=== PATIENT | male | born 1940 | race Caucasian/White ===

== ENCOUNTER → 2016-10-13 | Outpatient (CLI) | payer MEDICARE, OTHER ==
[2016-10-13] VITALS (7 sets, daily range): BP systolic 123–176; BP diastolic 81–106
[~2016-10-13] VITALS: Ht 170.2 cm; Wt 78.0 kg
[~2016-10-13] MED LIST: ACET325T9 PO; BETA15CR5 TP; BRIM5DRO3 EACHEYE; CALC625T7 PO; CHOL400C2 PO; CILO100T PO; CITA20SO PO; DORZ10DR7 EACHEYE; FENTANYL PF 250 MCG/5 ML VIAL. IV ONE; FENTANYL PF 250 MCG/5 ML VIAL. ONE; GUAI600T38 PO; LIDOCAINE 1% / SOD BICARB 8.4% 20 ML VIAL. IJ ONE; LORA10TA3 PO; MIDAZOLAM HCL/PF 5 MG/5 ML VIAL IV ONE; MIDAZOLAM HCL/PF 5 MG/5 ML VIAL ONE; OLAN5TAB3 PO; OMEP20TA PO; POLY500P10 MC; SENN8.6T3 PO; SIMV10TA3 PO; TRAV5DRO OP; WARF1TAB7 PO; WARF4TAB7 PO
[2016-10-13 07:21] LABS: BASO # 0.1 x10^3/uL (0.0-0.2); BASO % 1 % (0-3); EOS % 3 % (0-3); HEMATOCRIT 41.1 % (39.0-53.0); HEMOGLOBIN 13.7 g/dL (13.0-17.5); LYMPH # 1.9 x10^3/uL (1.0-4.8); LYMPH % 27 % (24-48); MEAN CORPUSCULAR HEMOGLOBIN 31 pg (25-35); MEAN CORPUSCULAR HGB CONC 33 g/dL (31-37); MEAN CORPUSCULAR VOLUME 92 fL (79-100); MONO % 13 % (0-9); NEUT % 57 % (31-73); PLATELET COUNT 134 x10^3/uL (140-400); RED BLOOD COUNT 4.45 x10^6/uL (4.30-5.70); RED CELL DISTRIBUTION WIDTH 14.6 % (11.5-14.5); WHITE BLOOD COUNT 7.2 x10^3/uL (4.0-11.0)
[2016-10-13 07:37] LABS: INR 1.1 (0.8-1.1); PROTHROMBIN TIME PATIENT 13.8 SEC (11.7-14.0)
--- NOTE | 2016-10-13 08:54 | PDOC ---
MODERATE SEDATION ASSESSMENT RISKS/ALTERNATIVES Risks/Alternatives Risks and alternatives of this type of sedation and procedure discussed with: RISK/ALTERNATIVES: Patient H & P ON CHART H & P H & P on chart and reviewed for co-morbid conditions and appropriate labs. H&P ON CHART: Yes STATUS PREG STATUS ASSESSED: Yes MEDS/ALLERGIES REVIEWED Meds/Allergies Reviewed Medications and Allergies including time and route of recently administered narcotics and sedatives. MEDS/ALLERGIES REVIEWED: Yes ASA RATING ASA RATING: II AIRWAY ASSESSMENT Airway Assessment Airway patency, oral function limitations, presence of caps, crowns, dentures, partials, and ability to extend neck assessed. AIRWAY ASSESSMENT: Yes MALLAMPATI SCORE MALLAMPATI SCORE: II PRE-SEDATION ASSESSMENT PRE-SEDATION ASSESSMENT: Yes JERAMY CABRERA MD Oct 13, 2016 08:54
--- NOTE | 2016-10-13 08:55 | PDOC ---
BRIEF OPERATIVE NOTE Pre-Op Diagnosis Thrombocytopenia Post-Op Diagnosis same Procedure Performed CT Bone Marrow Biopsy Surgeon Kristina Anesthesia Type: Conscious Sedation Specimens Obtained 2 x 2cc aspirates and 1 x 10g core Complications No immediate JERAMY CABRERA MD Oct 13, 2016 08:55
[2016-10-13 09:12] LABS: % BASOS 1 % (0-3); PLT ESTIMATE ADEQUATE (ADEQUATE)
--- NOTE | 2016-10-13 14:44 | RAD ---
Procedure: CT-guided bone marrow aspiration and biopsy Clinical Indication: 76-year-old male with thrombocytopenia Sedation: Conscious sedation was administered for 8 minutes. The patient was monitored by a qualified independent observer throughout the time of sedation. Please refer to the medical record for exact doses of medications utilized to achieve moderate sedation. Antibiotics: None Fluoro Time: Not applicable Contrast: None Sterility: The procedure was performed in its entirety using appropriate elements of sterile technique. Consent: The procedure was explained in its entirety to the patient or the patients designated apparel trimmings sales representative by a member of the treatment team, including a discussion of the risks, benefits and commonly accepted alternatives to the procedure, as well as the expected consequences of no therapy whatsoever. Discussion of the risks included, but was not limited to, those that are most frequent and those that are rare but possibly severe or life-threatening, as well as the possibility of unforeseen complications. Technique and Findings: Following informed consent, the patient was prepped and draped in usual sterile fashion. Preliminary CT scan of the area of interest was performed. 1% Lidocaine was used to achieve local anesthesia. Under periodic CT surveillance, an 11-gauge needle was advanced through the cortex of the posterior superior iliac spine and 2 separate 2 mL marrow aspirates were obtained and preserved on site by the assistant guest services manager. A single 11-gauge core biopsy specimen was then obtained and preserved in formalin. The needle was then removed and hemostasis was achieved with manual compression. Complications: No immediate Impression: 1. CT-guided bone marrow aspiration and biopsy as described PQRS Compliance Statement: One or more of the following individualized dose reduction techniques were utilized for this examination: 1. Automated exposure control 2. Adjustment of the mA and/or kV according to patient size 3. Use of iterative reconstruction technique
--- NOTE | 2016-10-15 16:22 | PATHOLOGY ---
PATHOLOGY REPORT * * * * * * * * FINAL DIAGNOSIS: Bone marrow aspirate, biopsy, cell clot and peripheral blood: - Peripheral blood with mild thrombocytopenia, mild mature monocytosis and mildly left shifted granulocytes. - Hypercellular bone marrow with trilineage hematopoiesis, mild dyspoiesis, and no evidence of lymphoma or acute leukemia. (see comment) COMMENT: Overall, the bone marrow is hypercellular for the patient's age with trilineage hematopoiesis, mild dyspoiesis, and no evidence of lymphoma or acute leukemia. The dyspoiesis is mild and white it could possibly represent a low-grade myelodysplastic syndrome or mixed myelodysplastic syndrome / myeloproliferative neoplasm, it does not meet the morphologic criteria for myelodysplasia. Correlation with clinical history, additional laboratory data and cytogenetics is recommended. (CLW:; d/t: 10/15/16) REPORT ELECTRONICALLY SIGNED BY: Alla Shen M.D. DATE/TIME: 10/15/2016 16:21 * * * * * * * * MICROSCOPIC DESCRIPTION: CBC Data (10/13/16): WBC 7,200 /uL, RBC 4.45, hemoglobin 13.7 g/dL, hematocrit 41.1%, MCV 92 fL, MCH 31 pg, MCHC 33 g/dL, RDW 14.6%, and platelet count 134,000 /uL. Manual white blood cell differential: 46% segs, 1% bands, 31% lymphs, 16% monos, 1% basos, 2% myelos, and 3% atypical lymphs. Peripheral Blood Smear: Cytomorphological examination of the Ovalles's stained peripheral blood smear confirms the provided data. Red blood cells are normocytic and are without significant anisopoikilocytosis. White blood cells are predominantly segmented neutrophils and are without significant dyspoiesis. There is a mild left shift with a rare metamyelocyte noted on scanning. No blasts or Antony rods are seen. Lymphocytes are predominantly small, round, and mature appearing with condensed chromatin and scant cytoplasm with admixed large granular lymphocytes and reactive appearing lymphocytes. On scanning, no markedly atypical lymphoid cells are seen. There is a mild mature monocytosis. Platelets are adequate (mildly decreased) in number and mainly normal in morphology with rare larger platelets noted. Aspirate Smears: Cytomorphological examination of the Ovalles's stained aspirate smear shows spicules present. The overall cellularity is approximately 60-70%. The myeloid to erythroid ratio is 1.5:1. Full myeloid maturation is identified and is without significant dyspoiesis. Erythroid maturation is mildly dyserythropoietic with occasional irregular nuclear contours, binucleate forms, and mitotic figures. In a 500 cell differential, there are 1% blasts (no Antony rods are seen), 54% more differentiated myeloids, 31% erythroid precursors, 11% lymphocytes, and 3% plasma cells. Megakaryocytes are proportional in number and both normal and abnormal in morphology with variable sizes and nuclear abnormalities including small and/or hypolobated forms present. No lymphoid aggregates or markedly atypical lymphoid cells are seen. Plasma cells are without atypia. Iron stain of the aspirate smear shows 1/4+ iron positivity with spicules present. No ringed sideroblast are identified. Core Biopsy and Cell Clot: The decalcified bone marrow core biopsy is adequate but suboptimal. It is small in size with a significant portion of periosteum. The overall cellularity is approximately 60-70% (hypercellular). The myeloid to erythroid ratio is 1-2:1. Myeloid maturation is without significant dyspoiesis. Erythroid maturation is mildly dyserythropoietic. Megakaryocytes are normal in number and both normal and abnormal in morphology. No lymphoid aggregates or markedly atypical lymphoid cells are seen. Bony trabeculae and blood vessels are unremarkable. The cell clot has spicules present that are similar in cellularity and differential morphology as previously described. Iron stain of the cell clot (block A1) shows 1/4+ iron positivity with spicules present. Flow Cytometry: Flow cytometric immunophenotypic analysis was performed at [facility]. The diagnosis is "no diagnostic immunophenotypic abnormalities detected." There are 12.4% lymphocytes. Of the lymphocytes, there are 68% T cells with a CD4/CD8 ratio of 1.2 and no aberrant T cell antigen expression and 5% polyclonal B cells. There are 1.0% CD34 positive cells (blasts) and 0.4% precursor B cells. No immunophenotypic evidence of a lymphoproliferative disorder, acute leukemia, increase in blasts or plasma cell neoplasm is identified. Please see separate flow cytometry report from [facility] ([id number]). Cytogenetics: Cytogenetic chromosomal analysis is pending at [facility] ([id number]). GROSS PATHOLOGY: A. Received in formalin labeled "Vincent Mejía" and additionally labeled "BM bx clot" on the requisition is blood coagulum, measuring 2.4 x 2.1 x 0.2 cm in aggregate dimensions. The specimen is submitted entirely in cassette A1. B. Received in formalin labeled "Vincent Mejía and bone marrow biopsy," is a single needle core of possible frias bone, measuring 0.3 cm in length and 0.2 cm in diameter. The specimen is submitted entirely in cassette B1, following decalcification. (TTL; 10/13/2016) INITIAL CPT CODE(S): A; 59860, 41056 B; 79524, 58706 C; 79606, 47647 D; 78357 Professional services performed by [facility] at [place] [address], [place] [address] Technical services performed by [facility] at [address] [place] [address], [facility] [address] [place] [address]. SPECIMEN(S) RECEIVED: A.Bone marrow, clot B.Bone marrow, biopsy C.Bone marrow, aspirate smears D.Peripheral smear CLINICAL HISTORY: MDS 76 year-old man with thrombocytopenia. PATIENT: VINCENT MEJÍA /AGE: 8 1940 (Age: 76) PATIENT #: [id number] ALT CASE #: SPECIMEN COLLECTION DATE: 10/13/2016 SPECIMEN RECEIVED DATE: 10/13/2016 [facility] - [id number] [place] [address] - PHONE: [phone] * * * END OF REPORT * * *
== END | disposition home or self-care (01) ==
LOC: INTRAD 06:45
PROVIDERS: ATTEND Internal Medicine Hematology & Oncology
DX: D69.6 Thrombocytopenia, unspecified (principal); G20 Parkinson's disease; E78.00 Pure hypercholesterolemia, unspecified; K21.9 Gastro-esophageal reflux disease without esophagitis; F32.9 Major depressive disorder, single episode, unspecified
CPT/HCPCS: 36415; 38221; 77012; 85007; 85027; 85610; 88184; 88185; 88237; G0364; J2250; J3010

== ENCOUNTER 2017-08-19 17:16 | Emergency (ER) | payer MEDICARE, OTHER ==
[~2017-08-19 17:16] MED LIST changes: -FENTANYL PF 250 MCG/5 ML VIAL. IV ONE; -FENTANYL PF 250 MCG/5 ML VIAL. ONE; -GUAI600T38 PO; +GUAI600T47 PO; -LIDOCAINE 1% / SOD BICARB 8.4% 20 ML VIAL. IJ ONE; -MIDAZOLAM HCL/PF 5 MG/5 ML VIAL IV ONE; -MIDAZOLAM HCL/PF 5 MG/5 ML VIAL ONE; -OMEP20TA PO; +OMEP20TA8 PO; +SENN-79 PO; -SENN8.6T3 PO
[2017-08-19 17:50] VITALS: BP 192/87
[2017-08-19] MEDS ORDERED: HYDROcodone/APAP 5/325MG 1 TAB TABLET PO ONE (18:15)
--- NOTE | 2017-08-19 18:16 | PHYS DOC ---
Past Medical History Past Medical History: Constipation, Depression, DVT, GERD, Glaucoma, High Cholesterol Additional Past Medical Histor: back pain , seasonal allergies. Past Surgical History: No Surgical History Alcohol Use: None Drug Use: None Adult General Chief Complaint Chief Complaint: UPPER EXTREMITY PAIN HPI HPI Patient is a 77 year old male who lives in assisted living facility with a history of Parkinson's, depression with psychosis and HTN presents to the ED complaining of left arm injury x 1 week. States a headboard fell and hit his arm. Describes the pain as sharp. Rates the pain as 7 out of 10. Denies head/ neck injury, LOC, vision changes, chest pain, shortness of breath, weakness, or nausea/vomiting. Facility mental health social worker at bedside. Review of Systems Review of Systems Constitutional: Denies fever or chills [] Eyes: Denies change in visual acuity, redness, or eye pain [] HENT: Denies nasal congestion or sore throat [] Respiratory: Denies cough or shortness of breath [] Cardiovascular: No additional information not addressed in HPI [] GI: Denies abdominal pain, nausea, vomiting, bloody stools or diarrhea [] : Denies dysuria or hematuria [] Musculoskeletal: Complains of left arm pain. Denies back pain. [] Integument: Denies rash or skin lesions [] Neurologic: Denies headache, focal weakness or sensory changes [] Endocrine: Denies polyuria or polydipsia [] All other systems were reviewed and found to be within normal limits, except as documented in this note. Current Medications Current Medications Current Medications Medications (Trade) Dose Ordered Sig/Eliceo Start Time Stop Time Status Last Admin Dose Admin Acetaminophen/ Hydrocodone Bitart (Lortab 5/325) 1 tab 1X ONCE 08/19/17 18:15 08/19/17 18:16 DC 08/19/17 18:15 1 TAB Allergies Allergies Allergies Coded Allergies Type Severity Reaction Last Updated Verified No Known Drug Allergies 08/07/13 No Physical Exam Physical Exam Constitutional: Well developed, well nourished, no acute distress, non-toxic appearance. [] HENT: Normocephalic, atraumatic, bilateral external ears normal, oropharynx moist, no oral exudates, nose normal. [] Eyes: PERRLA, EOMI, conjunctiva normal, no discharge. [] Neck: Normal range of motion, no tenderness, supple, no stridor. [] Cardiovascular:Heart rate regular rhythm, no murmur [] Lungs & Thorax: Bilateral breath sounds clear to auscultation [] Abdomen: Bowel sounds normal, soft, no tenderness, no masses, no pulsatile masses. [] Skin: Warm, dry, no erythema, no rash. [] Back: No tenderness, no CVA tenderness. [] Extremities: MILD LEFT WRIST AND HAND TENDERNESS. NO OVERLYING SKIN CHANGES OR SWELLING. NO SNUFFBOX TENDERNESS., no cyanosis, no clubbing, ROM intact, no edema. [] Neurologic: Alert and oriented X 3, normal motor function, normal sensory function, no focal deficits noted. [] Psychologic: Affect normal, judgement normal, mood normal. [] Current Patient Data Vital Signs Vital Signs Date Time Temp Pulse Resp B/P (MAP) Pulse Ox O2 Delivery O2 Flow Rate FiO2 08/19/17 18:15 16 Room Air 08/19/17 17:50 98.4 88 94 98.4 EKG EKG [] Radiology/Procedures Radiology/Procedures []PROCEDURE: WRIST 3V LEFT Three-view wrist 08/19/2017 Clinical indication: Left hand pain status post fall. Comparison: None. Findings: No acute fracture or traumatic malalignment. The joint spaces are maintained. Normal alignment of the carpal bones. Distal radius and ulna are intact. There are vascular calcifications noted about the arm. Impression: No acute osseous abnormality. PROCEDURE: HAND LEFT 3V 3 view left hand radiograph 08/19/2017 Clinical indication: Hand pain on the left status post fall. Comparison: None. Findings: Evaluation of the second through fifth distal digits is limited due to flexion on the frontal view. No acute fracture or dislocation. Soft tissues are unremarkable apart from vascular calcifications about the distal wrist. Impression: Somewhat limited evaluation of the distal second through fifth digits due to flexion, however no acute osseous abnormality within these limitations. Course & Med Decision Making Course & Med Decision Making Pertinent Labs and Imaging studies reviewed. (See chart for details) []His cussed imaging findings with patient and mental health social worker. Patient placed in thumb spica splint. Neurovascular intact post placement. Discussed follow-up with orthopedics early next week. Discussed reasons to return to the ED. tin recovery worker and patient understand and agree with plan. Patient's blood pressure in ED was elevated in the 190s over 90s. Patient states he is having a little bit of pain in his wrist. Denies any cardiac related symptoms. tin recovery worker states he was just taken off his blood pressure medicine because it kept dropping his blood pressure low. States he will see the facility doctor on Tuesday. Discussed the importance of serial blood pressure monitoring and reasons to return to the ED. tin recovery worker and patient understand the importance and risks. Dragon Disclaimer Dragon Disclaimer This electronic medical record was generated, in whole or in part, using a voice recognition dictation system. Departure Departure Impression: Primary Impression: Wrist injury Additional Impression: Hand injuries Disposition: HOME, SELF-CARE Condition: IMPROVED Referrals: XIMENA HUBER (PCP) ORLANDO SALINAS MD Patient Instructions: Wrist Pain, Wrist Splint Problem Qualifiers JERAMY LOMBARDI Aug 19, 2017 18:16
--- NOTE | 2017-08-20 08:05 | RAD ---
Three-view wrist 08/19/2017 Clinical indication: Left hand pain status post fall. Comparison: None. Findings: No acute fracture or traumatic malalignment. The joint spaces are maintained. Normal alignment of the carpal bones. Distal radius and ulna are intact. There are vascular calcifications noted about the arm. Impression: No acute osseous abnormality.
--- NOTE | 2017-08-20 08:07 | RAD ---
3 view left hand radiograph 08/19/2017 Clinical indication: Hand pain on the left status post fall. Comparison: None. Findings: Evaluation of the second through fifth distal digits is limited due to flexion on the frontal view. No acute fracture or dislocation. Soft tissues are unremarkable apart from vascular calcifications about the distal wrist. Impression: Somewhat limited evaluation of the distal second through fifth digits due to flexion, however no acute osseous abnormality within these limitations.
== END 2017-08-19 19:23 | disposition home or self-care (01) ==
LOC: ER 17:16
DX: S69.92XA Unspecified injury of left wrist, hand and finger(s), initial encounter (principal); F32.9 Major depressive disorder, single episode, unspecified; K21.9 Gastro-esophageal reflux disease without esophagitis; E78.00 Pure hypercholesterolemia, unspecified; H40.9 Unspecified glaucoma; G20 Parkinson's disease; I10 Essential (primary) hypertension; Z86.718 Personal history of other venous thrombosis and embolism; W01.198A Fall on same level from slipping, tripping and stumbling with subsequent striking against other object, initial encounter; Y93.89 Activity, other specified; Y92.89 Other specified places as the place of occurrence of the external cause; Y99.8 Other external cause status
CPT/HCPCS: 29125; 73110; 73130; 99284-25

== ENCOUNTER 2018-01-31 14:23 | Emergency (ER) | payer MEDICARE, OTHER ==
[2018-01-31 16:51] LABS: BASO # 0.1 x10^3/uL (0.0-0.2); BASO % 1 % (0-3); EOS # 0.2 x10^3/uL (0.0-0.7); EOS % 3 % (0-3); HEMATOCRIT 42.5 % (39.0-53.0); HEMOGLOBIN 14.5 g/dL (13.0-17.5); LYMPH # 1.6 x10^3/uL (1.0-4.8); LYMPH % 28 % (24-48); MEAN CORPUSCULAR HEMOGLOBIN 31 pg (25-35); MEAN CORPUSCULAR HGB CONC 34 g/dL (31-37); MEAN CORPUSCULAR VOLUME 90 fL (79-100); MONO # 0.9 x10^3/uL (0.0-1.1); MONO % 16 % (0-9); NEUT # 3.1 x10^3uL (1.8-7.7); NEUT % 53 % (31-73); PLATELET COUNT 147 x10^3/uL (140-400); RED BLOOD COUNT 4.71 x10^6/uL (4.30-5.70); RED CELL DISTRIBUTION WIDTH 15.2 % (11.5-14.5); WHITE BLOOD COUNT 5.8 x10^3/uL (4.0-11.0)
[2018-01-31 17:01] LABS: ADD MAN DIFF? YES
[2018-01-31 17:06] LABS: BILIRUBIN,URINE NEGATIVE (NEG); CLARITY,URINE CLEAR; COLOR,URINE YELLOW; GLUCOSE,URINE NEGATIVE (NEG); NITRITE,URINE NEGATIVE (NEG); PROTEIN,URINE NEGATIVE (NEG-TRACE); UROBILINOGEN,URINE 0.2 mg/dL (0.2 mg/dL)
[2018-01-31 17:08] LABS: ANION GAP 5 (6-14); BLOOD UREA NITROGEN 16 mg/dL (8-26); BUN/CREATININE RATIO 18 (6-20); CALCIUM 9.5 mg/dL (8.5-10.1); CARBON DIOXIDE 30 mmol/L (21-32); CHLORIDE 105 mmol/L (98-107); CREATININE 0.9 mg/dL (0.7-1.3); GLUCOSE 93 mg/dL (70-99); POTASSIUM 4.8 mmol/L (3.5-5.1); SODIUM 140 mmol/L (136-145)
[2018-01-31 17:14] LABS: ALBUMIN 3.6 g/dL (3.4-5.0); ALBUMIN/GLOBULIN RATIO 0.8 (1.0-1.7); ALK PHOS 97 U/L (46-116); ALT (SGPT) 35 U/L (16-63); AST (SGOT) 33 U/L (15-37); LIPASE 203 U/L (73-393); TOTAL BILIRUBIN 0.6 mg/dL (0.2-1.0)
[2018-01-31 17:17] LABS: INR 2.2 (0.8-1.1); PARTIAL THROMBOPLASTIN TIME 33 SEC (24-38); PROTHROMBIN TIME PATIENT 23.9 SEC (11.7-14.0)
[2018-01-31 17:19] LABS: BACTERIA,URINE 0 /HPF (0-FEW); RBC,URINE 0 /HPF (0-2); SQUAMOUS EPITHELIAL CELL,UR OCC /LPF; WBC,URINE OCC /HPF (0-4)
[2018-01-31 20:02] LABS: % BANDS 3 % (0-9); % EOS 2 % (0-5); % LYMPHS 39 % (24-48); % METAS 2 % (0-0); % MONOS 13 % (0-10); % SEGS 41 % (35-66)
[2018-01-31 20:06] LABS: PLT ESTIMATE ADEQUATE (ADEQUATE)
== END 2018-01-31 17:51 | disposition home or self-care (01) ==
LOC: ER 14:23
DX: R10.30 Lower abdominal pain, unspecified (principal); F79 Unspecified intellectual disabilities; E78.00 Pure hypercholesterolemia, unspecified; K21.9 Gastro-esophageal reflux disease without esophagitis; N40.0 Benign prostatic hyperplasia without lower urinary tract symptoms; K80.20 Calculus of gallbladder without cholecystitis without obstruction; F17.210 Nicotine dependence, cigarettes, uncomplicated; Z86.718 Personal history of other venous thrombosis and embolism
CPT/HCPCS: 36415; 74176; 80053; 81001; 83690; 85007; 85025; 85610; 85730; 93971; 99285-25

== ENCOUNTER 2018-03-31 11:15 | Emergency (ER) | payer MEDICARE, OTHER ==
[2018-03-31] MEDS: LIDOCAINE 1% Multi-Dose 20 ML VIAL. INJ (13:01)
[2018-03-31 13:16] LABS: BASO # 0.1 x10^3/uL (0.0-0.2); BASO % 1 % (0-3); EOS # 0.1 x10^3/uL (0.0-0.7); EOS % 1 % (0-3); HEMATOCRIT 42.2 % (39.0-53.0); HEMOGLOBIN 14.4 g/dL (13.0-17.5); LYMPH # 1.2 x10^3/uL (1.0-4.8); LYMPH % 15 % (24-48); MEAN CORPUSCULAR HEMOGLOBIN 31 pg (25-35); MEAN CORPUSCULAR HGB CONC 34 g/dL (31-37); MEAN CORPUSCULAR VOLUME 91 fL (79-100); MONO % 13 % (0-9); NEUT # 5.5 x10^3uL (1.8-7.7); NEUT % 70 % (31-73); PLATELET COUNT 141 x10^3/uL (140-400); RED BLOOD COUNT 4.65 x10^6/uL (4.30-5.70); RED CELL DISTRIBUTION WIDTH 14.5 % (11.5-14.5); WHITE BLOOD COUNT 7.8 x10^3/uL (4.0-11.0)
[2018-03-31 13:17] LABS: ADD MAN DIFF? YES
[2018-03-31 13:24] LABS: INR 2.4 (0.8-1.1); PARTIAL THROMBOPLASTIN TIME 31 SEC (24-38)
[2018-03-31] MEDS: NEOMY/BACITR/POLYMYXIN OINT PACKET. TP (14:18)
[2018-03-31] MEDS: cloNIDine HCL 0.1 MG TABLET PO (14:29)
[2018-03-31 15:45] LABS: % BANDS 2 % (0-9); % BASOS 1 % (0-3); % EOS 1 % (0-5); % LYMPHS 21 % (24-48); % METAS 1 % (0-0); % MONOS 8 % (0-10); % MYELOS 2 % (0-0); % SEGS 64 % (35-66)
[2018-03-31 15:46] LABS: PLT ESTIMATE ADEQUATE (ADEQUATE)
== END 2018-03-31 15:13 | disposition home or self-care (01) ==
LOC: ER 11:15
DX: S01.81XA Laceration without foreign body of other part of head, initial encounter (principal); S01.21XA Laceration without foreign body of nose, initial encounter; Z86.73 Personal history of transient ischemic attack (TIA), and cerebral infarction without residual deficits; K21.9 Gastro-esophageal reflux disease without esophagitis; E78.00 Pure hypercholesterolemia, unspecified; W01.0XXA Fall on same level from slipping, tripping and stumbling without subsequent striking against object, initial encounter; Y93.89 Activity, other specified; Y99.8 Other external cause status; Y92.89 Other specified places as the place of occurrence of the external cause
CPT/HCPCS: 12015; 36415; 70450; 72125; 85007; 85025; 85610; 85730; 99285-25

== ENCOUNTER 2018-06-03 10:49 | Emergency (ER) | payer MEDICARE, OTHER ==
[~2018-06-03] VITALS: Ht 175.3 cm; Wt 79.4 kg
[~2018-06-03 10:49] MED LIST changes: +NEOM28.32 TP; +WARF1TAB69 PO; -WARF1TAB7 PO; +WARF4TAB64 PO; -WARF4TAB7 PO
[2018-06-03 11:49] LABS: BASO # 0.1 x10^3/uL (0.0-0.2); BASO % 2 % (0-3); EOS # 0.1 x10^3/uL (0.0-0.7); EOS % 2 % (0-3); HEMATOCRIT 40.6 % (39.0-53.0); HEMOGLOBIN 13.5 g/dL (13.0-17.5); LYMPH # 1.8 x10^3/uL (1.0-4.8); LYMPH % 29 % (24-48); MEAN CORPUSCULAR HEMOGLOBIN 31 pg (25-35); MEAN CORPUSCULAR HGB CONC 33 g/dL (31-37); MEAN CORPUSCULAR VOLUME 92 fL (79-100); MONO # 0.9 x10^3/uL (0.0-1.1); MONO % 14 % (0-9); NEUT # 3.3 x10^3uL (1.8-7.7); NEUT % 53 % (31-73); PLATELET COUNT 169 x10^3/uL (140-400); RED BLOOD COUNT 4.41 x10^6/uL (4.30-5.70); RED CELL DISTRIBUTION WIDTH 14.3 % (11.5-14.5); WHITE BLOOD COUNT 6.2 x10^3/uL (4.0-11.0)
[2018-06-03 11:55] LABS: CALCIUM 9.6 mg/dL (8.5-10.1); GFR 72.5; POTASSIUM 3.9 mmol/L (3.5-5.1)
[2018-06-03 12:01] LABS: ALBUMIN 3.3 g/dL (3.4-5.0); ALBUMIN/GLOBULIN RATIO 0.8 (1.0-1.7); TOTAL BILIRUBIN 0.4 mg/dL (0.2-1.0); TOTAL PROTEIN 7.3 g/dL (6.4-8.2)
--- NOTE | 2018-06-03 12:02 | PHYS DOC ---
Past Medical History Past Medical History: Constipation, Depression, DVT, GERD, Glaucoma, High Cholesterol Additional Past Medical Histor: back pain , seasonal allergies. Mental retardation. Past Surgical History: No Surgical History Alcohol Use: None Drug Use: None Adult General Chief Complaint Chief Complaint: ABDOMINAL PAIN [facility] HPI Patient is a 78 year old male who presents with complaint of abdominal pain. Patient has a history of mental retardation and Parkinson's who lives at a [facility]. Patient's caregiver brought him in for further evaluation and management. Patient apparently had some vomiting in the last 24 hours without diarrhea and is here for further evaluation and management. Patient is answering questions casually and appears to be in no acute distress at this time. Review of Systems Review of Systems Constitutional: Denies fever or chills [] Eyes: Denies change in visual acuity, redness, or eye pain [] HENT: Denies nasal congestion or sore throat [] Respiratory: Denies cough or shortness of breath [] Cardiovascular: No additional information not addressed in HPI [] GI: Denies nausea, bloody stools or diarrhea, positive for abdominal pain and vomiting, [] : Denies dysuria or hematuria [] Musculoskeletal: Denies back pain or joint pain [] Integument: Denies rash or skin lesions [] Neurologic: Denies headache, focal weakness or sensory changes [] Endocrine: Denies polyuria or polydipsia [] All other systems were reviewed and found to be within normal limits, except as documented in this note. Current Medications Current Medications Current Medications Medications (Trade) Dose Ordered Sig/Eliceo Start Time Stop Time Status Last Admin Dose Admin Info (CONTRAST GIVEN -- Rx MONITORING) 1 each PRN DAILY PRN 06/03/18 12:30 06/05/18 12:29 Iohexol (Omnipaque 300 Mg/ml) 75 ml 1X ONCE 06/03/18 12:15 06/03/18 12:17 DC 06/03/18 12:15 75 ML Allergies Allergies Allergies Coded Allergies Type Severity Reaction Last Updated Verified No Known Drug Allergies 08/07/13 No Physical Exam Physical Exam Constitutional: Well developed, well nourished, no acute distress, non-toxic appearance. [] HENT: Normocephalic, atraumatic, bilateral external ears normal, oropharynx moist, no oral exudates, nose normal. [] Eyes: PERRLA, EOMI, conjunctiva normal, no discharge. [] Neck: Normal range of motion, no tenderness, supple, no stridor. [] Cardiovascular:Heart rate regular rhythm, no murmur [] Lungs & Thorax: Bilateral breath sounds clear to auscultation [] Abdomen: Bowel sounds normal, soft, no tenderness, no masses, no pulsatile masses. [] Skin: Warm, dry, no erythema, no rash. [] Back: No tenderness, no CVA tenderness. [] Extremities: No tenderness, no cyanosis, no clubbing, ROM intact, no edema. [] Neurologic: Alert and oriented X 3, normal motor function, normal sensory function, no focal deficits noted. [] Psychologic: Affect normal, judgement normal, mood normal. [] Current Patient Data Vital Signs Vital Signs Date Time Temp Pulse Resp B/P (MAP) Pulse Ox O2 Delivery O2 Flow Rate FiO2 06/03/18 12:03 78 129/75 (93) 95 Room Air 06/03/18 11:00 97.9 20 97.9 Lab Values Laboratory Tests Test 06/03/18 11:36 06/03/18 13:05 White Blood Count 6.2 x10^3/uL (4.0-11.0) Red Blood Count 4.41 x10^6/uL (4.30-5.70) Hemoglobin 13.5 g/dL (13.0-17.5) Hematocrit 40.6 % (39.0-53.0) Mean Corpuscular Volume 92 fL (79-100) Mean Corpuscular Hemoglobin 31 pg (25-35) Mean Corpuscular Hemoglobin Concent 33 g/dL (31-37) Red Cell Distribution Width 14.3 % (11.5-14.5) Platelet Count 169 x10^3/uL (140-400) Neutrophils (%) (Auto) 53 % (31-73) Lymphocytes (%) (Auto) 29 % (24-48) Monocytes (%) (Auto) 14 % (0-9) H Eosinophils (%) (Auto) 2 % (0-3) Basophils (%) (Auto) 2 % (0-3) Neutrophils # (Auto) 3.3 x10^3uL (1.8-7.7) Lymphocytes # (Auto) 1.8 x10^3/uL (1.0-4.8) Monocytes # (Auto) 0.9 x10^3/uL (0.0-1.1) Eosinophils # (Auto) 0.1 x10^3/uL (0.0-0.7) Basophils # (Auto) 0.1 x10^3/uL (0.0-0.2) Segmented Neutrophils % 42 % (35-66) Band Neutrophils % 8 % (0-9) Lymphocytes % 36 % (24-48) Atypical Lymphocytes % (Manual) 4 % (0-0) H Monocytes % 9 % (0-10) Eosinophils % 1 % (0-5) Platelet Estimate Adequate (ADEQUATE) Prothrombin Time 17.0 SEC (11.7-14.0) H Prothrombin Time INR 1.4 (0.8-1.1) H PTT 28 SEC (24-38) Sodium Level 142 mmol/L (136-145) Potassium Level 3.9 mmol/L (3.5-5.1) Chloride Level 104 mmol/L (98-107) Carbon Dioxide Level 28 mmol/L (21-32) Anion Gap 10 (6-14) Blood Urea Nitrogen 14 mg/dL (8-26) Creatinine 1.0 mg/dL (0.7-1.3) Estimated GFR (Cockcroft-Gault) 72.5 BUN/Creatinine Ratio 14 (6-20) Glucose Level 137 mg/dL (70-99) H Calcium Level 9.6 mg/dL (8.5-10.1) Total Bilirubin 0.4 mg/dL (0.2-1.0) Aspartate Amino Transferase (AST) 24 U/L (15-37) Alanine Aminotransferase (ALT) 31 U/L (16-63) Alkaline Phosphatase 107 U/L (46-116) Troponin I Quantitative < 0.017 ng/mL (0.000-0.055) Total Protein 7.3 g/dL (6.4-8.2) Albumin 3.3 g/dL (3.4-5.0) L Albumin/Globulin Ratio 0.8 (1.0-1.7) L Amylase Level 57 U/L (25-115) Lipase 148 U/L (73-393) Urine Collection Type Unknown Urine Color Yellow Urine Clarity Clear Urine pH 7.0 Urine Specific [place] 1.025 Urine Protein 30 mg/dL (NEG-TRACE) Urine Glucose (UA) Negative mg/dL (NEG) Urine Ketones (Stick) Negative mg/dL (NEG) Urine Blood Negative (NEG) Urine Nitrite Negative (NEG) Urine Bilirubin Negative (NEG) Urine Urobilinogen Dipstick 1.0 mg/dL (0.2 mg/dL) Urine Leukocyte Esterase Negative (NEG) Urine RBC Occ /HPF (0-2) Urine WBC 0 /HPF (0-4) Urine Bacteria 0 /HPF (0-FEW) Laboratory Tests 06/03/18 11:36 Laboratory Tests 06/03/18 11:36 EKG EKG , Sinus rhythm at a rate of 79 with a PAC, incomplete right bundle branch block , there are no old EKGs for comparison[] Radiology/Procedures Radiology/Procedures [][place] [address] IMAGING REPORT Signed PATIENT: VINCENT MEJÍA ACCOUNT: [id number] : 1940 LOCATION: ER AGE: 78 SEX: M EXAM STATUS: REG ER ORD. PHYSICIAN: RACHAEL LEW MD REASON: abdominal pain PROCEDURE: PORTABLE CHEST 1V Single frontal view of the chest HISTORY: History of abdominal pain, vomiting COMPARISON: 11/17/2012 FINDINGS: The cardiomediastinal silhouette grossly appears unremarkable. Minimal bibasilar lung atelectasis. IMPRESSION: Minimal bibasilar lung atelectasis. Electronically signed by: Michele Mims MD (06/03/2018 11:59 AM) [facility] DICTATED and SIGNED BY: MICHELE MIMS MD DATE: 06/03/[address] [address] IMAGING REPORT Signed PATIENT: VINCENT MEJÍA ACCOUNT: [id number] : 1940 LOCATION: ER AGE: 78 SEX: M EXAM STATUS: REG ER ORD. PHYSICIAN: RACHAEL LEW MD REASON: abdominal pain PROCEDURE: CT ABD PELV W/ IV CONTRST ONLY Examination: CT of the abdomen pelvis with IV contrast HISTORY: History of lower abdominal pain COMPARISON: 01/31/2018 TECHNIQUE: Axial CT images of the abdomen pelvis were performed with IV contrast. Coronal and sagittal reformats are performed Exposure: One or more of the following individualized dose reduction techniques were utilized for this examination: 1. Automated exposure control 2. Adjustment of the mA and/or kV according to patient size 3. Use of iterative reconstruction technique FINDINGS: Mild bibasilar lung airspace opacities. No evidence of free air identified in the abdomen. The visualized liver, spleen, adrenals grossly appears unremarkable. The gallbladder is mildly distended. Gallstones identified within the gallbladder. The stomach is mildly distended. The visualized pancreas grossly appears unremarkable. Small bowel is nondilated. Feces and gas noted in the colon. The appendix is normal. The bilateral kidneys enhance symmetrically. 8 mm cyst identified in the left kidney. Markedly enlarged prostate gland similar to prior exam with central prostatic calcifications. The urinary bladder is mildly distended. Small fat-containing left inguinal hernia. Moderate degenerative changes lumbar spine. IVC filter is identified. IMPRESSION: 1. No acute intra-abdominal findings. 2. Cholelithiasis. 3. Markedly enlarged prostate gland. Course & Med Decision Making Course & Med Decision Making Pertinent Labs and Imaging studies reviewed. (See chart for details) []She had no acute distress at this time and has no abdominal pain. There is no previous history or knowledge of the patient had gallstones and a low-fat diet/ gallbladder diet was discussed with caregiver as well as the need for follow-up and further evaluation and management. Dragon Disclaimer Dragon Disclaimer This electronic medical record was generated, in whole or in part, using a voice recognition dictation system. Departure Departure Impression: Primary Impression: Gallstones Additional Impression: Colic, biliary Disposition: 01 HOME, SELF-CARE Condition: STABLE Referrals: XIMENA HUBER (PCP) Additional Instructions: Follow-up with your primary care and the next 1-2 days for further evaluation and management of your condition Problem Qualifiers RACHAEL LEW MD Jun 03, 2018 12:02
[2018-06-03] MEDS ORDERED: TRIA15OI TP (12:03)
[2018-06-03] MEDS ORDERED: OMEP20TA8 PO (12:03)
[2018-06-03] MEDS ORDERED: CHOL100013 PO (12:03)
[2018-06-03] MEDS ORDERED: AMLO5TAB7 PO (12:03)
[2018-06-03] MEDS ORDERED: OLAN20TA7 PO (12:03)
[2018-06-03] MEDS ORDERED: IOHEXOL 300 MG/ML 100ML VIAL. IV ONE (12:15)
[2018-06-03] MEDS ORDERED: CONTRAST GIVEN. MC PRN (12:30)
[2018-06-03 13:12] LABS: BILIRUBIN,URINE NEGATIVE (NEG); CLARITY,URINE CLEAR; COLOR,URINE YELLOW; NITRITE,URINE NEGATIVE (NEG); PROTEIN,URINE 30 mg/dL (NEG-TRACE)
--- NOTE | 2018-06-03 13:12 | RAD ---
Examination: CT of the abdomen pelvis with IV contrast HISTORY: History of lower abdominal pain COMPARISON: 01/31/2018 TECHNIQUE: Axial CT images of the abdomen pelvis were performed with IV contrast. Coronal and sagittal reformats are performed Exposure: One or more of the following individualized dose reduction techniques were utilized for this examination: 1. Automated exposure control 2. Adjustment of the mA and/or kV according to patient size 3. Use of iterative reconstruction technique FINDINGS: Mild bibasilar lung airspace opacities. No evidence of free air identified in the abdomen. The visualized liver, spleen, adrenals grossly appears unremarkable. The gallbladder is mildly distended. Gallstones identified within the gallbladder. The stomach is mildly distended. The visualized pancreas grossly appears unremarkable. Small bowel is nondilated. Feces and gas noted in the colon. The appendix is normal. The bilateral kidneys enhance symmetrically. 8 mm cyst identified in the left kidney. Markedly enlarged prostate gland similar to prior exam with central prostatic calcifications. The urinary bladder is mildly distended. Small fat-containing left inguinal hernia. Moderate degenerative changes lumbar spine. IVC filter is identified. IMPRESSION: 1. No acute intra-abdominal findings. 2. Cholelithiasis. 3. Markedly enlarged prostate gland. Electronically signed by: Michele Mims MD (06/03/2018 1:08 PM) [facility]
[2018-06-03 13:17] LABS: % ATYL 4 % (0-0); % BANDS 8 % (0-9); % EOS 1 % (0-5); % LYMPHS 36 % (24-48); % MONOS 9 % (0-10); % SEGS 42 % (35-66)
[2018-06-03 13:19] LABS: PLT ESTIMATE ADEQUATE (ADEQUATE)
[2018-06-03 13:52] LABS: BACTERIA,URINE 0 /HPF (0-FEW); RBC,URINE OCC /HPF (0-2); WBC,URINE 0 /HPF (0-4)
[2018-06-03 13:59] VITALS: BP 146/80
--- NOTE | 2018-06-03 14:56 | EKG ---
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
== END 2018-06-03 14:09 | disposition home or self-care (01) ==
LOC: ER 10:49
DX: K80.70 Calculus of gallbladder and bile duct without cholecystitis without obstruction (principal); N40.0 Benign prostatic hyperplasia without lower urinary tract symptoms; K21.9 Gastro-esophageal reflux disease without esophagitis; E78.00 Pure hypercholesterolemia, unspecified; F32.9 Major depressive disorder, single episode, unspecified; Z86.718 Personal history of other venous thrombosis and embolism; Z86.59 Personal history of other mental and behavioral disorders
CPT/HCPCS: 36415; 71045; 74177; 80053; 81001; 82150; 83690; 84484; 85007; 85025; 85610; 85730; 93005; 99285; Q9967; 96374

== ENCOUNTER 2018-08-31 15:18 | Emergency (ER) | payer MEDICARE, OTHER ==
[~2018-08-31] VITALS: Ht 177.8 cm; Wt 79.4 kg
[~2018-08-31 15:18] MED LIST changes: +AMLO5TAB7 PO; +CHOL100013 PO; +OLAN20TA7 PO; -SENN-79 PO; +SENN-80 PO; +TRIA15OI TP
[2018-08-31] MEDS ORDERED: ACETAMINOPHEN 500 MG TABLET PO ONE (18:45)
[2018-08-31 19:07] LABS: BILIRUBIN,URINE SMALL (NEG); CLARITY,URINE CLEAR; COLOR,URINE YELLOW; NITRITE,URINE NEGATIVE (NEG); PH,URINE 5.5; PROTEIN,URINE 100 mg/dL (NEG-TRACE)
[2018-08-31 19:12] LABS: BASO # 0.1 x10^3/uL (0.0-0.2); BASO % 1 % (0-3); EOS # 0.1 x10^3/uL (0.0-0.7); EOS % 2 % (0-3); HEMATOCRIT 44.1 % (39.0-53.0); LYMPH # 1.9 x10^3/uL (1.0-4.8); LYMPH % 28 % (24-48); MEAN CORPUSCULAR HEMOGLOBIN 31 pg (25-35); MEAN CORPUSCULAR HGB CONC 34 g/dL (31-37); MEAN CORPUSCULAR VOLUME 91 fL (79-100); MONO # 1.1 x10^3/uL (0.0-1.1); MONO % 15 % (0-9); NEUT # 3.7 x10^3uL (1.8-7.7); NEUT % 54 % (31-73); PLATELET COUNT 129 x10^3/uL (140-400); RED BLOOD COUNT 4.85 x10^6/uL (4.30-5.70); RED CELL DISTRIBUTION WIDTH 15.4 % (11.5-14.5); WHITE BLOOD COUNT 6.8 x10^3/uL (4.0-11.0)
[2018-08-31 19:17] LABS: CALCIUM 9.7 mg/dL (8.5-10.1); GFR 72.5; POTASSIUM 4.5 mmol/L (3.5-5.1)
[2018-08-31 19:17] LABS: BACTERIA,URINE 0 /HPF (0-FEW); RBC,URINE RARE /HPF (0-2); SQUAMOUS EPITHELIAL CELL,UR FEW /LPF; WBC,URINE 0 /HPF (0-4)
[2018-08-31 19:23] LABS: ALBUMIN 3.1 g/dL (3.4-5.0); ALBUMIN/GLOBULIN RATIO 0.6 (1.0-1.7); TOTAL BILIRUBIN 0.5 mg/dL (0.2-1.0)
[2018-08-31 19:27] VITALS: BP 161/83
--- NOTE | 2018-08-31 19:34 | RAD ---
INDICATION: ruq pain COMPARISON: CT from June 03, 2018 TECHNIQUE: Grayscale and color ultrasound images obtained through the abdomen. FINDINGS: Aorta/IVC: Not well seen Pancreas: Not well seen Liver: Liver is echogenic with portions not well seen secondary to poor beam penetration. Gallbladder: Contracted with stones within. Wall measures up to about 3 mm. Common Bile Duct: Not dilated. Right Kidney: 5 mm echogenic focus within right kidney. No hydronephrosis. IMPRESSION: 1. Gallbladder is contracted with stones within and mild wall thickening. This mild wall thickening could be secondary to contraction however causes such as primary gallbladder inflammation, reactive changes to adjacent hepatic inflammation or a systemic process such as hypoproteinemia can also have this appearance and if further clarification is desired a follow-up nuclear hepatobiliary scan could further evaluate. 2. Liver is echogenic. Nonspecific but can be seen with fatty infiltration. 3. Echogenic structure within the right kidney. Could be secondary to prominent fat in the area or a nonobstructive stone. Electronically signed by: Jimbo Joe MD (08/31/2018 7:30 PM) [facility]
[2018-08-31 19:40] LABS: % BANDS 3 % (0-9); % BASOS 2 % (0-3); % LYMPHS 27 % (24-48); % METAS 3 % (0-0); % MONOS 11 % (0-10); % SEGS 54 % (35-66); PLT ESTIMATE ADEQUATE (ADEQUATE)
[2018-08-31] MEDS ORDERED: HYDR-3164 PO (20:11)
--- NOTE | 2018-08-31 20:45 | PHYS DOC ---
Past Medical History Past Medical History: Constipation, Depression, DVT, GERD, Glaucoma, High Cholesterol Additional Past Medical Histor: back pain , seasonal allergies. Mental retardation. Past Surgical History: Other Additional Past Surgical Histo: hernia Alcohol Use: None Drug Use: None Adult General Chief Complaint Chief Complaint: ABDOMINAL PAIN HPI HPI Patient is a 78 year old male presenting with abdominal pain right upper quadrant he thinks it is a hernia he does have a history of mental retardation. He has had additional history from the caregiver abdominal pain in the same location for 2 months on and off no fever no vomiting pain is mild dull nonradiating Review of Systems Review of Systems Limited by mental retardation Current Medications Current Medications Current Medications Medications (Trade) Dose Ordered Sig/Eliceo Start Time Stop Time Status Last Admin Dose Admin Acetaminophen (Tylenol) 1,000 mg 1X ONCE 08/31/18 18:45 08/31/18 18:46 DC 08/31/18 18:49 1,000 MG Allergies Allergies Allergies Coded Allergies Type Severity Reaction Last Updated Verified No Known Drug Allergies 08/07/13 No Physical Exam Physical Exam Constitutional: Well developed, well nourished, no acute distress, non-toxic appearance. [] HENT: Normocephalic, atraumatic, bilateral external ears normal, oropharynx moist, no oral exudates, nose normal. [] Eyes: PERRLA, EOMI, conjunctiva normal, no discharge. [] Neck: Normal range of motion, no tenderness, supple, no stridor. [] Cardiovascular:Heart rate regular rhythm, no murmur [] Lungs & Thorax: Bilateral breath sounds clear to auscultation [] Abdomen: Bowel sounds normal, soft, ruq with no murphys tenderness, no masses, no pulsatile masses. [] Skin: dry scaly rash to lower abdo Back: No tenderness, no CVA tenderness. [] Extremities: No tenderness, no cyanosis, no clubbing, ROM intact, no edema. [] Neurologic: Alert and oriented X 3, normal motor function, normal sensory function, no focal deficits noted. [] mild mr but alert and appropriate Psychologic: Affect normal, judgement normal, mood normal. [] Current Patient Data Vital Signs Vital Signs Date Time Temp Pulse Resp B/P (MAP) Pulse Ox O2 Delivery O2 Flow Rate FiO2 08/31/18 19:27 74 16 161/83 (109) 96 Room Air 08/31/18 18:10 98.2 98.2 Lab Values Laboratory Tests Test 08/31/18 18:30 08/31/18 18:55 Urine Collection Type Unknown Urine Color Yellow Urine Clarity Clear Urine pH 5.5 Urine Specific [place] 1.025 Urine Protein 100 mg/dL (NEG-TRACE) Urine Glucose (UA) Negative mg/dL (NEG) Urine Ketones (Stick) Negative mg/dL (NEG) Urine Blood Negative (NEG) Urine Nitrite Negative (NEG) Urine Bilirubin Small (NEG) Urine Urobilinogen Dipstick 1.0 mg/dL (0.2 mg/dL) Urine Leukocyte Esterase Negative (NEG) Urine RBC Rare /HPF (0-2) Urine WBC 0 /HPF (0-4) Urine Squamous Epithelial Cells Few /LPF Urine Calcium Phosphate Crystals /HPF Urine Bacteria 0 /HPF (0-FEW) Urine Mucus Mod /LPF White Blood Count 6.8 x10^3/uL (4.0-11.0) Red Blood Count 4.85 x10^6/uL (4.30-5.70) Hemoglobin 15.0 g/dL (13.0-17.5) Hematocrit 44.1 % (39.0-53.0) Mean Corpuscular Volume 91 fL (79-100) Mean Corpuscular Hemoglobin 31 pg (25-35) Mean Corpuscular Hemoglobin Concent 34 g/dL (31-37) Red Cell Distribution Width 15.4 % (11.5-14.5) H Platelet Count 129 x10^3/uL (140-400) L Neutrophils (%) (Auto) 54 % (31-73) Lymphocytes (%) (Auto) 28 % (24-48) Monocytes (%) (Auto) 15 % (0-9) H Eosinophils (%) (Auto) 2 % (0-3) Basophils (%) (Auto) 1 % (0-3) Neutrophils # (Auto) 3.7 x10^3uL (1.8-7.7) Lymphocytes # (Auto) 1.9 x10^3/uL (1.0-4.8) Monocytes # (Auto) 1.1 x10^3/uL (0.0-1.1) Eosinophils # (Auto) 0.1 x10^3/uL (0.0-0.7) Basophils # (Auto) 0.1 x10^3/uL (0.0-0.2) Segmented Neutrophils % 54 % (35-66) Band Neutrophils % 3 % (0-9) Lymphocytes % 27 % (24-48) Monocytes % 11 % (0-10) H Basophils % 2 % (0-3) Metamyelocytes % 3 % (0-0) H Platelet Estimate Adequate (ADEQUATE) Sodium Level 141 mmol/L (136-145) Potassium Level 4.5 mmol/L (3.5-5.1) Chloride Level 106 mmol/L (98-107) Carbon Dioxide Level 26 mmol/L (21-32) Anion Gap 9 (6-14) Blood Urea Nitrogen 18 mg/dL (8-26) Creatinine 1.0 mg/dL (0.7-1.3) Estimated GFR (Cockcroft-Gault) 72.5 BUN/Creatinine Ratio 18 (6-20) Glucose Level 93 mg/dL (70-99) Calcium Level 9.7 mg/dL (8.5-10.1) Total Bilirubin 0.5 mg/dL (0.2-1.0) Aspartate Amino Transferase (AST) 27 U/L (15-37) Alanine Aminotransferase (ALT) 21 U/L (16-63) Alkaline Phosphatase 98 U/L (46-116) Troponin I Quantitative < 0.017 ng/mL (0.000-0.055) Total Protein 8.0 g/dL (6.4-8.2) Albumin 3.1 g/dL (3.4-5.0) L Albumin/Globulin Ratio 0.6 (1.0-1.7) L Lipase 133 U/L (73-393) Laboratory Tests 08/31/18 18:55 Laboratory Tests 08/31/18 18:55 EKG EKG [] Radiology/Procedures Radiology/Procedures [] Impressions: IMPRESSION: IMPRESSION: 1. Gallbladder is contracted with stones within and mild wall thickening. This mild wall thickening could be secondary to contraction however causes such as primary gallbladder inflammation, reactive changes to adjacent hepatic inflammation or a systemic process such as hypoproteinemia can also have this appearance and if further clarification is desired a follow-up nuclear hepatobiliary scan could further evaluate. 2. Liver is echogenic. Nonspecific but can be seen with fatty infiltration. 3. Echogenic structure within the right kidney. Could be secondary to prominent fat in the area or a nonobstructive stone. Electronically signed by: Jimbo Joe MD (08/31/2018 7:30 PM) [facility] Course & Med Decision Making Course & Med Decision Making Pertinent Labs and Imaging studies reviewed. (See chart for details) []Right upper quadrant pain 2 months intermittent in nature 78-year-old male with MR mild abdominal tenderness only he tolerated oral in the emergency room Ultrasound noted wall thickening only 3 mm I believe this is borderline normal given a contracted gallbladder there are gallstones no obvious signs of cholecystitis by physical examination ultrasound or lab work. Perception for [place] was given I did discuss with caregiver explicit return precautions for fever refractory vomiting persistent pain otherwise follow-up with surgeon referral was provided Noted the urinalysis as well as possible nonobstructing stone on the ultrasound this medical picture is not consistent with acute renal colic the pain is in the right upper quadrant and in the CVA area there is no infection noted. I think that was an incidental finding. Dragon Disclaimer Dragon Disclaimer This electronic medical record was generated, in whole or in part, using a voice recognition dictation system. Departure Departure Impression: Primary Impression: Cholelithiasis Disposition: 01 HOME, SELF-CARE Condition: IMPROVED Referrals: DANGELO GAYLE MD Patient Instructions: Cholelithiasis, [id number] Scripts Hydrocodone/Apap 5-325 (NORCO 5-325 TABLET) 1 Each Tablet 1-2 EACH PO PRN Q6HRS PRN for PAIN, #15 as needed for pain Prov: BISMARK BUSTOS MD 08/31/18 BISMARK BUSTOS MD Aug 31, 2018 20:45
--- NOTE | 2018-09-01 06:24 | EKG ---
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
== END 2018-08-31 20:15 | disposition home or self-care (01) ==
LOC: ER 15:18
DX: K80.20 Calculus of gallbladder without cholecystitis without obstruction (principal); K21.9 Gastro-esophageal reflux disease without esophagitis; E78.00 Pure hypercholesterolemia, unspecified; Z86.718 Personal history of other venous thrombosis and embolism
CPT/HCPCS: 36415; 76705; 80053; 81001; 83690; 84484; 85007; 85025; 93005; 99284-25

== ENCOUNTER 2019-01-11 16:35 | Emergency (ER) | payer MEDICARE, OTHER ==
[~2019-01-11] VITALS: Ht 177.8 cm; Wt 90.7 kg
[~2019-01-11 16:35] MED LIST changes: +AMLO5TAB10 PO; -AMLO5TAB7 PO; +HYDR-3164 PO; +OLAN20TA15 PO; -OLAN20TA7 PO
--- NOTE | 2019-01-11 18:05 | PHYS DOC ---
Past Medical History Past Medical History: Constipation, Depression, DVT, GERD, Glaucoma, High Cholesterol Additional Past Medical Histor: back pain , seasonal allergies. Mental retardation. (YENIFER WALSH DO) Past Surgical History: Other Additional Past Surgical Histo: hernia (YENIFER WALSH DO) Alcohol Use: None Drug Use: None (YENIFER WALSH DO) Adult General Chief Complaint Chief Complaint: GROIN PAIN [facility] HPI Patient is a 78 year old male presented to ER today for evaluation of right side abdominal pain, lower abdominal area, groin area for about a week. Patient denies any fever, no nausea or vomiting. Patient has not been consistent with his history. She denies any lower extremity pain, no trouble breathing, no chest pain or any cough or fever. (YENIFER WALSH DO) Review of Systems Review of Systems Constitutional: Denies fever or chills [] Eyes: Denies change in visual acuity, redness, or eye pain [] HENT: Denies nasal congestion or sore throat [] Respiratory: Denies cough or shortness of breath [] Cardiovascular: No additional information not addressed in HPI [] GI: Positive for abdominal pain, no nausea, vomiting, bloody stools or diarrhea [] : Denies dysuria or hematuria [] Musculoskeletal: Denies back pain or joint pain [] Integument: Denies rash or skin lesions [] Neurologic: Denies headache, focal weakness or sensory changes [] Endocrine: Denies polyuria or polydipsia [] All other systems were reviewed and found to be within normal limits, except as documented in this note. (YENIFER WALSH DO) Current Medications Current Medications Current Medications Medications (Trade) Dose Ordered Sig/Eliceo Start Time Stop Time Status Last Admin Dose Admin Info (CONTRAST GIVEN -- Rx MONITORING) 1 each PRN DAILY PRN 01/11/19 19:15 01/13/19 19:14 Iohexol (Omnipaque 300 Mg/ml) 75 ml 1X ONCE 01/11/19 19:15 01/11/19 19:16 DC 01/11/19 19:15 75 ML (ALHAJI RM DO) Allergies Allergies Allergies Coded Allergies Type Severity Reaction Last Updated Verified No Known Drug Allergies 08/07/13 No (ALHAJI RM DO) Physical Exam Physical Exam Constitutional: Well developed, well nourished, no acute distress, non-toxic appearance. [] HENT: Normocephalic, atraumatic, bilateral external ears normal, oropharynx moist, no oral exudates, nose normal. [] Eyes: PERRLA, EOMI, conjunctiva normal, no discharge. [] Neck: Normal range of motion, no tenderness, supple, no stridor. [] Cardiovascular:Heart rate regular rhythm, no murmur [] Lungs & Thorax: Bilateral breath sounds clear to auscultation [] Abdomen: Bowel sounds normal, soft,There is tenderness to palpation in RLQ, no masses, no pulsatile masses. [] Skin: Warm, dry, no erythema, no rash. [] Back: No tenderness, no CVA tenderness. [] Extremities: No tenderness, no cyanosis, no clubbing, ROM intact, no edema. YEAST LIKE INFECTION IN RIGHT GROIN AREA WITH BLANCA DISCHARGE Neurologic: Alert and oriented X 3, normal motor function, normal sensory function, no focal deficits noted. [] Psychologic: Affect normal, judgement normal, mood normal. [] (YENIFER WALSH DO) Physical Exam Constitutional: Well developed, well nourished, no acute distress Abdomen: Soft, mild tenderness to palpation to RUQ, no rebound tenderness, no guarding, no distention Skin: Warm, dry, no erythema, yeast dermatitis of right groin Back: No tenderness, no CVA tenderness. [] Neurologic: Alert and oriented X 3, no focal deficits noted. [] Psychologic: Affect normal, judgement normal, mood normal. [] (ALHAJI RM DO) Current Patient Data Vital Signs Vital Signs Date Time Temp Pulse Resp B/P (MAP) Pulse Ox O2 Delivery O2 Flow Rate FiO2 01/11/19 18:42 74 153/72 (99) 92 Room Air 01/11/19 17:52 98.2 20 98.2 (ALHAJI RM DO) Lab Values Laboratory Tests Test 01/11/19 18:05 01/11/19 18:25 01/11/19 18:50 White Blood Count 6.2 x10^3/uL (4.0-11.0) Red Blood Count 4.59 x10^6/uL (4.30-5.70) Hemoglobin 13.9 g/dL (13.0-17.5) Hematocrit 42.2 % (39.0-53.0) Mean Corpuscular Volume 92 fL (79-100) Mean Corpuscular Hemoglobin 30 pg (25-35) Mean Corpuscular Hemoglobin Concent 33 g/dL (31-37) Red Cell Distribution Width 14.7 % (11.5-14.5) H Platelet Count 150 x10^3/uL (140-400) Neutrophils (%) (Auto) 53 % (31-73) Lymphocytes (%) (Auto) 28 % (24-48) Monocytes (%) (Auto) 15 % (0-9) H Eosinophils (%) (Auto) 3 % (0-3) Basophils (%) (Auto) 1 % (0-3) Neutrophils # (Auto) 3.3 x10^3uL (1.8-7.7) Lymphocytes # (Auto) 1.7 x10^3/uL (1.0-4.8) Monocytes # (Auto) 0.9 x10^3/uL (0.0-1.1) Eosinophils # (Auto) 0.2 x10^3/uL (0.0-0.7) Basophils # (Auto) 0.1 x10^3/uL (0.0-0.2) Segmented Neutrophils % 48 % (35-66) Band Neutrophils % 2 % (0-9) Lymphocytes % 25 % (24-48) Monocytes % 12 % (0-10) H Eosinophils % 6 % (0-5) H Metamyelocytes % 4 % (0-0) H Myelocytes % 3 % (0-0) H Toxic Vacuolation Slight Platelet Estimate Adequate (ADEQUATE) Tear Drop Cells Few Sodium Level 138 mmol/L (136-145) Potassium Level 3.9 mmol/L (3.5-5.1) Chloride Level 102 mmol/L (98-107) Carbon Dioxide Level 27 mmol/L (21-32) Anion Gap 9 (6-14) Blood Urea Nitrogen 14 mg/dL (8-26) Creatinine 1.1 mg/dL (0.7-1.3) Estimated GFR (Cockcroft-Gault) 64.9 BUN/Creatinine Ratio 13 (6-20) Glucose Level 113 mg/dL (70-99) H Calcium Level 9.1 mg/dL (8.5-10.1) Total Bilirubin 0.4 mg/dL (0.2-1.0) Aspartate Amino Transferase (AST) 18 U/L (15-37) Alanine Aminotransferase (ALT) 25 U/L (16-63) Alkaline Phosphatase 96 U/L (46-116) Total Protein 7.3 g/dL (6.4-8.2) Albumin 3.1 g/dL (3.4-5.0) L Albumin/Globulin Ratio 0.7 (1.0-1.7) L Lipase 115 U/L (73-393) Urine Collection Type Unknown Urine Color Yellow Urine Clarity Clear Urine pH 6.5 Urine Specific [place] 1.015 Urine Protein 30 mg/dL (NEG-TRACE) Urine Glucose (UA) Negative mg/dL (NEG) Urine Ketones (Stick) Negative mg/dL (NEG) Urine Blood Negative (NEG) Urine Nitrite Negative (NEG) Urine Bilirubin Negative (NEG) Urine Urobilinogen Dipstick 1.0 mg/dL (0.2 mg/dL) Urine Leukocyte Esterase Negative (NEG) Urine RBC Occ /HPF (0-2) Urine WBC Rare /HPF (0-4) Urine Squamous Epithelial Cells Occ /LPF Urine Bacteria 0 /HPF (0-FEW) Urine Mucus Slight /LPF Laboratory Tests 01/11/19 18:05 Laboratory Tests 01/11/19 18:25 (ALHAJI RM DO) Lab Values Laboratory Tests Test 01/11/19 18:05 01/11/19 18:25 01/11/19 18:50 White Blood Count 6.2 x10^3/uL (4.0-11.0) Red Blood Count 4.59 x10^6/uL (4.30-5.70) Hemoglobin 13.9 g/dL (13.0-17.5) Hematocrit 42.2 % (39.0-53.0) Mean Corpuscular Volume 92 fL (79-100) Mean Corpuscular Hemoglobin 30 pg (25-35) Mean Corpuscular Hemoglobin Concent 33 g/dL (31-37) Red Cell Distribution Width 14.7 % (11.5-14.5) H Platelet Count 150 x10^3/uL (140-400) Neutrophils (%) (Auto) 53 % (31-73) Lymphocytes (%) (Auto) 28 % (24-48) Monocytes (%) (Auto) 15 % (0-9) H Eosinophils (%) (Auto) 3 % (0-3) Basophils (%) (Auto) 1 % (0-3) Neutrophils # (Auto) 3.3 x10^3uL (1.8-7.7) Lymphocytes # (Auto) 1.7 x10^3/uL (1.0-4.8) Monocytes # (Auto) 0.9 x10^3/uL (0.0-1.1) Eosinophils # (Auto) 0.2 x10^3/uL (0.0-0.7) Basophils # (Auto) 0.1 x10^3/uL (0.0-0.2) Segmented Neutrophils % 48 % (35-66) Band Neutrophils % 2 % (0-9) Lymphocytes % 25 % (24-48) Monocytes % 12 % (0-10) H Eosinophils % 6 % (0-5) H Metamyelocytes % 4 % (0-0) H Myelocytes % 3 % (0-0) H Toxic Vacuolation Slight Platelet Estimate Adequate (ADEQUATE) Tear Drop Cells Few Sodium Level 138 mmol/L (136-145) Potassium Level 3.9 mmol/L (3.5-5.1) Chloride Level 102 mmol/L (98-107) Carbon Dioxide Level 27 mmol/L (21-32) Anion Gap 9 (6-14) Blood Urea Nitrogen 14 mg/dL (8-26) Creatinine 1.1 mg/dL (0.7-1.3) Estimated GFR (Cockcroft-Gault) 64.9 BUN/Creatinine Ratio 13 (6-20) Glucose Level 113 mg/dL (70-99) H Calcium Level 9.1 mg/dL (8.5-10.1) Total Bilirubin 0.4 mg/dL (0.2-1.0) Aspartate Amino Transferase (AST) 18 U/L (15-37) Alanine Aminotransferase (ALT) 25 U/L (16-63) Alkaline Phosphatase 96 U/L (46-116) Total Protein 7.3 g/dL (6.4-8.2) Albumin 3.1 g/dL (3.4-5.0) L Albumin/Globulin Ratio 0.7 (1.0-1.7) L Lipase 115 U/L (73-393) Urine Collection Type Unknown Urine Color Yellow Urine Clarity Clear Urine pH 6.5 Urine Specific [place] 1.015 Urine Protein 30 mg/dL (NEG-TRACE) Urine Glucose (UA) Negative mg/dL (NEG) Urine Ketones (Stick) Negative mg/dL (NEG) Urine Blood Negative (NEG) Urine Nitrite Negative (NEG) Urine Bilirubin Negative (NEG) Urine Urobilinogen Dipstick 1.0 mg/dL (0.2 mg/dL) Urine Leukocyte Esterase Negative (NEG) Urine RBC Occ /HPF (0-2) Urine WBC Rare /HPF (0-4) Urine Squamous Epithelial Cells Occ /LPF Urine Bacteria 0 /HPF (0-FEW) Urine Mucus Slight /LPF Laboratory Tests 01/11/19 18:05 Laboratory Tests 01/11/19 18:25 (YENIFER WALSH DO) EKG EKG [] (YENIFER WALSH DO) Radiology/Procedures Radiology/Procedures [] (YENIFER WALSH DO) Radiology/Procedures PROCEDURE: CT ABD PELV W/ IV CONTRST ONLY EXAM: Abdomen and pelvis CT with intravenous contrast. HISTORY: Pain. TECHNIQUE: Computed tomographic images of the abdomen and pelvis were obtained following the administration of 75 cc Omnipaque 300 intravenous contrast. Multiplanar reformatting was performed. *One or more of the following individualized dose reduction techniques were utilized for this examination: 1. Automated exposure control. 2. Adjustment of the mA and/or kV according to patient size. 3. Use of iterative reconstruction technique. COMPARISON: 06/03/2018. FINDINGS: Evaluation of the lower thorax demonstrates posterior dependent and basilar atelectasis. There is cardiomegaly. There is coronary artery atherosclerosis. There is a tiny hiatal hernia. There is mild hepatic steatosis. There is cholelithiasis. The pancreas is unremarkable. There are few splenules adjacent to an otherwise unremarkable spleen. The adrenal glands are unremarkable. There is no suspicious renal lesion or obstructive uropathy. There is a heterogeneously enlarged prostate containing calcifications. This results in deformation of the bladder base. There is no appendicitis. There is no bowel obstruction. There is aortic and aortic branch vessel atherosclerosis. There is an IVC filter in expected position. There are degenerative changes throughout the spine and bony pelvis. There is no suspicious osseous lesion. IMPRESSION: 1. No acute abdominal or pelvic finding. 2. Hepatic steatosis. 3. Cholelithiasis. 4. Tiny hiatal hernia. 5. Prostatomegaly resulting in deformation of the bladder base. Electronically signed by: Dede Mercado MD (01/11/2019 7:37 PM) [facility] PROCEDURE: ABDOMEN LTD EXAM: Abdomen sonogram. HISTORY: Pain. TECHNIQUE: Sonographic imaging of the abdomen was performed. COMPARISON: CT obtained on the same date. FINDINGS: The liver is normal in size. No focal hepatic lesion is seen. There is cholelithiasis. There is a positive sonographic New's sign. The wall is normal in thickness. There is no pericholecystic fluid. The common bile duct is normal in caliber. The right kidney and inferior vena cava are unremarkable. The pancreas is obscured due to bowel gas. IMPRESSION: 1. Cholelithiasis. There is a positive sonographic New's sign. However, there are no additional secondary findings to suggest cholecystitis. 2. Obscured pancreas due to bowel gas. Electronically signed by: Dede Mercado MD (01/11/2019 8:36 PM) [facility] (ALHAJI RM DO) Course & Med Decision Making Course & Med Decision Making Pertinent Labs and Imaging studies reviewed. (See chart for details) Handed over care to Dr. Estevan Rm at shift change. (YENIFER WALSH DO) Course & Med Decision Making Sign out received from Dr. Walsh for patient with abdominal pain. US Abd pending. Labs reviewed. CT abd/pelvis also reviewed with findings of cholelithiasis. US without signs of acute cholecystitis. Patient stable for discharge with outpatient follow-up with PCP/Gen. surgery. Gen. surgery referral provided. Discussed findings and plan with patient and family, who acknowledge understanding and agreement. (ALHAJI RM DO) Dragon Disclaimer Dragon Disclaimer This electronic medical record was generated, in whole or in part, using a voice recognition dictation system. (YENIFER WALSH DO) Departure Departure Impression: Primary Impression: Cholelithiasis Additional Impression: Yeast dermatitis Disposition: HOME, SELF-CARE Condition: STABLE Referrals: XIMENA HUBER (PCP) RICCI CORDERO MD Patient Instructions: Cholelithiasis, [id number], Yeast Infection of the Skin, [id number] Scripts Ondansetron (ONDANSETRON ODT) 4 Mg Tab.rapdis 1 TAB PO PRN Q6-8HRS PRN for NAUSEA, #16 TAB Prov: ALHAJI RM DO 01/11/19 Nystatin (NYSTATIN) 15 Gm Powder 1 ENE TP BID PRN for RASH, #1 BOTTLE Prov: ALHAJI RM DO 01/11/19 Hydrocodone/Apap 5-325 (NORCO 5-325 TABLET) 1 Each Tablet 0.5-1 TAB PO PRN Q6HRS PRN for PAIN, #10 TAB 0 Refills Prov: ALHAJI RM DO 01/11/19 Problem Qualifiers Primary Impression: Cholelithiasis Cholelithiasis location: gallbladder Cholecystitis presence: without ch olecystitis Biliary obstruction: without biliary obstruction Qualified Codes: K80.20 - Calculus of gallbladder without cholecystitis without obstruction YENIFER WALSH DO January 11, 2019 18:05 ALHAJI RM DO January 11, 2019 21:11
[2019-01-11 18:17] LABS: BASO # 0.1 x10^3/uL (0.0-0.2); BASO % 1 % (0-3); EOS # 0.2 x10^3/uL (0.0-0.7); EOS % 3 % (0-3); HEMATOCRIT 42.2 % (39.0-53.0); HEMOGLOBIN 13.9 g/dL (13.0-17.5); LYMPH # 1.7 x10^3/uL (1.0-4.8); LYMPH % 28 % (24-48); MEAN CORPUSCULAR HEMOGLOBIN 30 pg (25-35); MEAN CORPUSCULAR HGB CONC 33 g/dL (31-37); MEAN CORPUSCULAR VOLUME 92 fL (79-100); MONO # 0.9 x10^3/uL (0.0-1.1); MONO % 15 % (0-9); NEUT # 3.3 x10^3uL (1.8-7.7); NEUT % 53 % (31-73); PLATELET COUNT 150 x10^3/uL (140-400); RED BLOOD COUNT 4.59 x10^6/uL (4.30-5.70); RED CELL DISTRIBUTION WIDTH 14.7 % (11.5-14.5); WHITE BLOOD COUNT 6.2 x10^3/uL (4.0-11.0)
[2019-01-11 18:42] VITALS: BP 153/72
[2019-01-11 18:42] LABS: % BANDS 2 % (0-9); % EOS 6 % (0-5); % LYMPHS 25 % (24-48); % METAS 4 % (0-0); % MONOS 12 % (0-10); % MYELOS 3 % (0-0); % SEGS 48 % (35-66); PLT ESTIMATE ADEQUATE (ADEQUATE)
[2019-01-11 18:43] LABS: CALCIUM 9.1 mg/dL (8.5-10.1); CREATININE 1.1 mg/dL (0.7-1.3); GFR 64.9; POTASSIUM 3.9 mmol/L (3.5-5.1)
[2019-01-11 18:43] LABS: TEAR DROP CELLS FEW
[2019-01-11 18:44] LABS: TOXIC VACUOLATION SLIGHT
[2019-01-11 18:49] LABS: ALBUMIN 3.1 g/dL (3.4-5.0); ALBUMIN/GLOBULIN RATIO 0.7 (1.0-1.7); TOTAL BILIRUBIN 0.4 mg/dL (0.2-1.0); TOTAL PROTEIN 7.3 g/dL (6.4-8.2)
[2019-01-11 18:55] LABS: BILIRUBIN,URINE NEGATIVE (NEG); CLARITY,URINE CLEAR; COLOR,URINE YELLOW; NITRITE,URINE NEGATIVE (NEG); PH,URINE 6.5; PROTEIN,URINE 30 mg/dL (NEG-TRACE)
[2019-01-11 19:02] LABS: BACTERIA,URINE 0 /HPF (0-FEW); RBC,URINE OCC /HPF (0-2); SQUAMOUS EPITHELIAL CELL,UR OCC /LPF; WBC,URINE RARE /HPF (0-4)
[2019-01-11] MEDS ORDERED: CONTRAST GIVEN. MC PRN (19:15)
[2019-01-11] MEDS ORDERED: IOHEXOL 300 MG/ML 100ML VIAL. IV ONE (19:15)
--- NOTE | 2019-01-11 19:40 | RAD ---
EXAM: Abdomen and pelvis CT with intravenous contrast. HISTORY: Pain. TECHNIQUE: Computed tomographic images of the abdomen and pelvis were obtained following the administration of 75 cc Omnipaque 300 intravenous contrast. Multiplanar reformatting was performed. *One or more of the following individualized dose reduction techniques were utilized for this examination: 1. Automated exposure control. 2. Adjustment of the mA and/or kV according to patient size. 3. Use of iterative reconstruction technique. COMPARISON: 06/03/2018. FINDINGS: Evaluation of the lower thorax demonstrates posterior dependent and basilar atelectasis. There is cardiomegaly. There is coronary artery atherosclerosis. There is a tiny hiatal hernia. There is mild hepatic steatosis. There is cholelithiasis. The pancreas is unremarkable. There are few splenules adjacent to an otherwise unremarkable spleen. The adrenal glands are unremarkable. There is no suspicious renal lesion or obstructive uropathy. There is a heterogeneously enlarged prostate containing calcifications. This results in deformation of the bladder base. There is no appendicitis. There is no bowel obstruction. There is aortic and aortic branch vessel atherosclerosis. There is an IVC filter in expected position. There are degenerative changes throughout the spine and bony pelvis. There is no suspicious osseous lesion. IMPRESSION: 1. No acute abdominal or pelvic finding. 2. Hepatic steatosis. 3. Cholelithiasis. 4. Tiny hiatal hernia. 5. Prostatomegaly resulting in deformation of the bladder base. Electronically signed by: Dede Mercado MD (01/11/2019 7:37 PM) [facility]
--- NOTE | 2019-01-11 20:39 | RAD ---
EXAM: Abdomen sonogram. HISTORY: Pain. TECHNIQUE: Sonographic imaging of the abdomen was performed. COMPARISON: CT obtained on the same date. FINDINGS: The liver is normal in size. No focal hepatic lesion is seen. There is cholelithiasis. There is a positive sonographic New's sign. The wall is normal in thickness. There is no pericholecystic fluid. The common bile duct is normal in caliber. The right kidney and inferior vena cava are unremarkable. The pancreas is obscured due to bowel gas. IMPRESSION: 1. Cholelithiasis. There is a positive sonographic New's sign. However, there are no additional secondary findings to suggest cholecystitis. 2. Obscured pancreas due to bowel gas. Electronically signed by: Dede Mercado MD (01/11/2019 8:36 PM) [facility]
[2019-01-11] MEDS ORDERED: HYDR-3164 PO (21:09)
[2019-01-11] MEDS ORDERED: NYST15PO9 TP (21:09)
[2019-01-11] MEDS ORDERED: ONDA4TAB12 PO (21:09)
== END 2019-01-11 21:30 | disposition home or self-care (01) ==
LOC: ER 16:35
DX: K80.20 Calculus of gallbladder without cholecystitis without obstruction (principal); B37.2 Candidiasis of skin and nail; K21.9 Gastro-esophageal reflux disease without esophagitis; E78.00 Pure hypercholesterolemia, unspecified; Z86.718 Personal history of other venous thrombosis and embolism; Z98.890 Other specified postprocedural states
CPT/HCPCS: 36415; 74177; 76705; 80053; 81001; 83690; 85007; 85025; 99285; Q9967

== ENCOUNTER → 2020-05-21 | Outpatient (CLI) | payer OTHER ==
[2019-10-17 10:55] VITALS: BP 135/70
[~2020-05-21] MED LIST changes: +ACET-1871 PO; +CEPH250C PO; -CITA20SO PO; +CITA20SO2 PO; +CITA20TA6 PO; +DICY10CA3 PO; +ENOX40DI SQ; +HYOS0.1264 PO; +LOPE2TAB27 PO; +NYST15PO9 TP; +ONDA4TAB12 PO; +POLY17PO29 PO; +SENN-182 PO; -SENN-80 PO; +SIMV10TA15 PO; -SIMV10TA3 PO; +TIMO5DRO21 OU
--- NOTE | 2020-05-21 13:31 | RAD ---
EXAM: AP and lateral views left knee DATE: 05/21/2020 11:36 AM INDICATION: Reason: OSTEOARTHRITIS RT KNEE, PAIN AND SWELLING / Spl. Instructions: / History: COMPARISON: No Prior FINDINGS: No acute fracture or dislocation. Joint spaces are preserved. Small patellofemoral osteophytes. Chondrocalcinosis. Atherosclerotic vascular calcifications are seen. Diffuse thickening of the fibular periosteum has significantly increased compared to the prior examination, and etiology is unclear. Although this could be from healing fracture, hypertrophic pulmonary osteoarthropathy may result in this appearance and chest imaging is recommended. IMPRESSION: 1. Diffuse thickening of the fibular periosteum has significantly increased compared to the prior examination, and etiology is unclear. Although this could be from healing fracture, hypertrophic pulmonary osteoarthropathy may result in this appearance and chest imaging is recommended. 2. 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 3. No acute fracture or dislocation. Electronically signed by: Alex Andrew MD (05/21/2020 1:27 PM) [facility]
== END | disposition home or self-care (01) ==
LOC: RAD 10:24
PROVIDERS: ATTEND Internal Medicine
DX: M17.11 Unilateral primary osteoarthritis, right knee (principal); M25.761 Osteophyte, right knee; M11.261 Other chondrocalcinosis, right knee; R22.41 Localized swelling, mass and lump, right lower limb
CPT/HCPCS: 73560

== ENCOUNTER → 2022-01-06 | Outpatient (CLI) | payer OTHER ==
[2019-10-17 10:55] VITALS: BP 135/70
[~2022-01-06] MED LIST changes: +AMLO-186 PO; -AMLO5TAB10 PO; -OMEP20TA8 PO; +OMEP20TA91 PO
--- NOTE | 2022-01-06 16:49 | RAD ---
EXAM: XR LT WRIST 2 VIEWS 01/06/2022 2:52 PM CLINICAL INDICATION: Left wrist pain after fall COMPARISON: 08/19/2017 TECHNIQUE: PA and lateral views of the left wrist FINDINGS: No acute fracture. Alignment is normal. Joint spaces are maintained. No soft tissue swelli ng. There are vascular calcifications. IMPRESSION: No acute osseous abnormality. Electronically signed by: Medina Diane MD (01/06/2022 4:47 PM) [id number]
== END ==
LOC: RAD 14:42
PROVIDERS: ATTEND Internal Medicine
DX: M25.532 Pain in left wrist (principal); M21.232 Flexion deformity, left wrist; W19.XXXA Unspecified fall, initial encounter
CPT/HCPCS: 73100